=== PATIENT | female | born 1960 | race Caucasian/White ===

== ENCOUNTER 2024-01-07 14:47 | Outpatient (CLI) | payer BC, MEDICAID | END 2024-01-07 23:59 | disposition home or self-care (01) | LOC: 64 CT 14:47 | PROVIDERS: ATTEND Podiatrist Foot & Ankle Surgery | DX: S93.331A Other subluxation of right foot, initial encounter (principal); M19.071 Primary osteoarthritis, right ankle and foot; M21.41 Flat foot [pes planus] (acquired), right foot; G62.9 Polyneuropathy, unspecified; M79.671 Pain in right foot; X58.XXXA Exposure to other specified factors, initial encounter; Y93.89 Activity, other specified; Y92.89 Other specified places as the place of occurrence of the external cause; Y99.8 Other external cause status | CPT/HCPCS: 73700 ==